=== PATIENT | male | born 1960 | race Caucasian/White ===

== ENCOUNTER 2019-05-13 08:03 | Day surgery (SDC) | payer BC ==
[~2019-05-13 08:03] MED LIST: Lactated Ringers 1,000 ML IV SCH; Sodium Chloride 0.9% 10 ML Syringe FLUSH PRN
[2019-05-13] MEDS ORDERED: Lidocaine 2% 100 MG/5 ML Syringe IVPUSH ONE (08:04)
[2019-05-13] MEDS ORDERED: Propofol 200 MG/20 ML SDV ONE (08:12)
[2019-05-13] MEDS ORDERED: fentaNYL 250 MCG/5 ML SDV ONE (08:12)
[2019-05-13] MEDS ORDERED: ceFAZolin 1 GM Vial ONE ×4 (08:12→09:37)
[2019-05-13] MEDS ORDERED: Bupivacaine 0.5%/EPINEPHrine 1:200,000 30 ML SDV ONE ×2 (08:32→10:33)
[2019-05-13] MEDS ORDERED: Bacitracin/Neomycin/Polymyxin B Oint 0.9 GM U/D Packet ONE (08:33)
[2019-05-13] MEDS ORDERED: ceFAZolin 1 GM Vial IV ONE (09:03)
[2019-05-13] MEDS ORDERED: Propofol 200 MG/20 ML SDV IV ONE (09:03)
[2019-05-13] MEDS ORDERED: Ondansetron 4 MG/2 ML SDV IV ONE (09:03)
[2019-05-13] MEDS ORDERED: fentaNYL 250 MCG/5 ML SDV IV ONE (09:03)
--- NOTE | 2019-05-13 09:12 | PCM.PN ---
- General Info Date of Service: 05/13/19 - Review of Systems Systems Review Comment:: 59-year-old male here for repair of bilateral inguinal hernias. Patient is medically stable to proceed today. His recent history and physical is reviewed and no significant changes are noted. I have discussed the proposed operative procedure with the patient. Expectations instructions and risks of been reviewed. He agrees to proceed. Sites of the hernias are confirmed with the patient and marked. - Patient Data Vitals - Most Recent: Last Vital Signs Temp 97.7 F 05/13/19 08:00 Pulse 57 L 05/13/19 08:00 Resp 16 05/13/19 08:00 BP 136/80 05/13/19 08:00 Pulse Ox 98 05/13/19 08:00 Weight - Most Recent: 89.675 kg Med Orders - Current: Current Medications Lactated Ringer's (Ringers, Lactated) 1,000 mls @ 30 mls/hr IV ASDIRECTED [facility] Last Admin: 05/13/19 08:48 Dose: 30 mls/hr Sodium Chloride (Saline Flush) 10 ml FLUSH Q8HR PRN PRN Reason: keep vein open Discontinued Medications Bupivacaine HCl/Epinephrine Bitart (Marcaine 0.5%/Epinephrine 1:200,000) Confirm Administered Dose 30 ml .ROUTE .STK-MED ONE Stop: 05/13/19 08:33 Cefazolin Sodium (Ancef) Confirm Administered Dose 1 gm .ROUTE .STK-MED ONE Stop: 05/13/19 08:13 Cefazolin Sodium (Ancef) Confirm Administered Dose 1 gm .ROUTE .STK-MED ONE Stop: 05/13/19 08:33 Fentanyl (Sublimaze) Confirm Administered Dose 250 mcg .ROUTE .STK-MED ONE Stop: 05/13/19 08:13 Neomycin/Polymyxin/Bacitracin (Triple Antibiotic Oint) Confirm Administered Dose 2 each .ROUTE .STK-MED ONE Stop: 05/13/19 08:34 Propofol (Diprivan 20 Ml) Confirm Administered Dose 200 mg .ROUTE .STK-MED ONE Stop: 05/13/19 08:13 Sepsis Event Note - Focused Exam Vital Signs: Vital Signs Temp Pulse Resp BP Pulse Ox 05/13/19 08:00 97.7 F 57 L 16 136/80 98 Date Exam was Performed: 05/13/19 Time Exam was Performed: 09:10 - Problem List Review Problem List Initiated/Reviewed/Updated: Yes - My Orders Last 24 Hours: My Active Orders 05/12/19 11:42 Resuscitation Status Routine 05/13/19 08:00 Antiembolic Devices [RC] PER UNIT ROUTINE Peripheral IV Care [RC] . DIRECTED Verify Patient Consent Obtain [RC] ASDIRECTED Vital Signs [RC] PER UNIT ROUTINE Lactated Ringers [Ringers, Lactated] 1,000 ml IV ASDIRECTED Sodium Chloride 0.9% [Saline Flush] 10 ml FLUSH Q8HR PRN Peripheral IV Insertion Adult [OM.PC] Routine Sequential Compression Device [OM.PC] Routine 05/13/19 Breakfast Nothing Per Oral Diet [DIET] - Assessment Assessment:: Bilateral inguinal hernias - Plan Plan:: Bilateral inguinal hernia repair with mesh
[2019-05-13] MEDS ORDERED: Bacitracin/Neomycin/Polymyxin B Oint 0.9 GM U/D Packet TOP ONE (09:30)
[2019-05-13] MEDS ORDERED: Sodium Chloride 0.9% 20 ML SDV ONE (09:30)
[2019-05-13] MEDS ORDERED: Bupivacaine 0.5%/EPINEPHrine 1:200,000 30 ML SDV INFILT ONE (09:30)
[2019-05-13] MEDS ORDERED: fentaNYL 100 MCG/2 ML SDV IVPUSH ONE ×3 (12:11→12:55)
--- NOTE | 2019-05-13 12:12 | PCM.OPNOTE ---
- General Post-Op/Procedure Note Date of Surgery/Procedure: 05/13/19 Operative Procedure(s): Bilateral inguinal hernia repair with mesh Findings: Bilateral direct inguinal hernias. The right side was large and the left side medium-sized. 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 No indirect hernias were identified. Pre Op Diagnosis: Bilateral inguinal hernias Post-Op Diagnosis: Bilateral direct inguinal hernias Anesthesia Technique: General ET Tube Primary Surgeon: Case Mcqueen Pathology: Bilateral cord lipomas EBL in mLs: 20 Complications: None Condition: Good
--- NOTE | 2019-05-13 13:16 | OR ---
DATE OF SURGERY: 05/13/2019 SURGEON: Case Mcqueen MD REFERRING PHYSICIAN: Dr. Michelle Felipe. PREOPERATIVE DIAGNOSIS: Bilateral inguinal hernias. POSTOPERATIVE DIAGNOSIS: Bilateral direct inguinal hernias and bilateral cord lipomas. OPERATION PERFORMED: Bilateral inguinal hernia repair with mesh. INDICATIONS FOR SURGERY: This 59-year-old male has developed bilateral inguinal hernias, which are increasing in size and increasingly symptomatic. He comes for elective repair. FINDINGS: On the right side, the patient has a large direct inguinal hernia. A large amount of what appears to be bladder, was protruding through a large defect in the floor of the inguinal canal, which encompasses almost the entire floor of the canal. There was also a large cord lipoma associated with this. The cord structures otherwise appeared normal with no indirect component. On the left side, the patient has a smaller direct inguinal hernia protruding through the lateral aspect of the floor of the inguinal canal. There was no indirect component. There was a large associated cord lipoma. DESCRIPTION OF PROCEDURE: The patient was taken to the operating room. He was given general endotracheal anesthesia. The inguinal area was sterilely prepped with Betadine and draped. A linear right groin incision was made and carried down to the external oblique fascia, which was incised opening the external ring. The spermatic cord was isolated and careful dissection off the large direct hernia on this side. The ilioinguinal nerve was identified and carefully preserved. The cord was examined and no indirect component was identified. The direct hernia was reduced and then it was held in a reduced position with a running 0 Vicryl suture. The cord was then skeletonized by removing a large cord lipoma, it from the cord down to the level of the internal ring with the lipoma being clamped and divided near the level of the internal ring with 2-0 Vicryl being used to control the vascular pedicles. The floor of the inguinal canal was then reinforced with a large size keyhole piece of polypropylene mesh. The inferior edge of the mesh was secured down to the Kumar's ligament medial to the femoral vessels and then to the shelving portion of the inguinal ligament anterior to these vessels with interrupted 0 Prolene. The superior edge of the mesh was secured to the internal oblique fascia near its fusion with the external oblique fascia also with interrupted 0 Prolene. The spermatic cord and ilioinguinal nerve were passed through the keyhole defect and the tails of the mesh were secured laterally with 0 Prolene, recreating the internal ring such that it would admit one fingertip alongside the spermatic cord. The tails of the mesh were trimmed and laid into the space lateral to the internal ring, between the internal and external oblique fascia. This created a secure reinforcement of the floor of the inguinal canal. The wound was irrigated with Ancef and saline solution, which had also been used to soak the mesh prior to its placement. The external oblique fascia was closed with a running 2-0 Vicryl recreating the external ring. The wound was infiltrated with Marcaine. The Zia's fascia was approximated with interrupted 4-0 Vicryl. The skin was closed with a running 4-0 Vicryl subcuticular stitch. Attention was then turned to the left groin where a corresponding left groin incision was made. This was carried down to the external oblique fascia, which was incised, opening the external ring. The spermatic cord was isolated and explored. No indirect component was identified. The ilioinguinal nerve was carefully identified and preserved. The direct defect was identified in the floor of the canal. This was easily reduced and held in a reduced position with a running 0 Vicryl. The floor of the inguinal canal was then reinforced with a large size keyhole piece of polypropylene mesh. The inferior edge of the mesh being secured to the Kumar's ligament medial to the femoral vessels and the shelving portion of inguinal ligament anterior to these vessels with interrupted 0 Prolene. There superior edge of the mesh was secured down to the internal oblique fascia near its fusion with the external oblique fascia also with interrupted 0 Prolene. The spermatic cord and ilioinguinal nerve were passed through the keyhole defect and the tails of the mesh was secured laterally to each other with interrupted 0 Prolene, recreating the internal ring such that would admit one fingertip alongside the spermatic cord. The tails of the mesh were then trimmed and laid into the space lateral to the internal ring between the internal and external oblique fascias. This created a secure and solid reinforcement of the floor of the inguinal canal on the left side. It should also be noted that a large cord lipoma was removed from the left spermatic cord and its base was divided above clamps with ties of 0 Vicryl being used for hemostasis. After the mesh had been secured, the wound was irrigated with Ancef and saline solution and the external oblique fascia was reapproximated with a running 2-0 Vicryl recreating the external ring. The wound was infiltrated with Marcaine. The Zia's fascia was approximated with interrupted 4-0 Vicryl and the skin was closed with a running 4-0 Vicryl subcuticular stitch. Steri-Strips and benzoin were applied to both incisions followed by antibiotic ointment and sterile dressings. The patient was awakened, extubated, and taken from the operating room in satisfactory condition. ESTIMATED BLOOD LOSS: 20 mL. COMPLICATIONS: None. PROGNOSIS: Good. /[id number]/MODL
[2019-05-13] MEDS ORDERED: Ondansetron 4 MG/2 ML SDV IVPUSH ONE (13:40)
[2019-05-13] MEDS ORDERED: Acetaminophen/HYDROcodone 325-5 MG Tab PO ONE (15:39)
== END 2019-05-13 16:05 | disposition home or self-care (01) ==
LOC: KA.SDS 08:03
PROVIDERS: ATTEND Surgery
DX: K40.20 Bilateral inguinal hernia, without obstruction or gangrene, not specified as recurrent (principal); D17.6 Benign lipomatous neoplasm of spermatic cord
CPT/HCPCS: A9270-GY; C1781; J0690; J2001; J2405; J2704; J3010; J3490; J7120

== ENCOUNTER 2023-02-15 22:58 | Emergency (ER) | payer BC ==
[2023-02-15] MEDS ORDERED: Sodium Chloride 0.9% 10 ML Syringe FLUSH PRN (23:05)
[2023-02-15] MEDS ORDERED: Sodium Chloride 0.9% 1,000 ML IV ONE (23:26)
[2023-02-15 23:27] LABS: BASOPHILS ABSOLUTE AUTO 0.06 10^3/uL (0.00-0.10); BASOPHILS PERCENT AUTO 0.7 % (0.0-1.0); EOSINOPHILS PERCENT AUTO 2.3 % (1.0-3.0); HEMATOCRIT 48.2 % (40.0-52.0); HEMOGLOBIN 16.4 g/dL (13.0-17.0); IMMATURE GRAN ABSOLUTE AUTO 0.01 10^3/uL (0.00-0.50); IMMATURE GRAN PERCENT AUTO 0.1 % (0.0-5.0); LYMPHOCYTES ABSOLUTE AUTO 2.02 10^3/uL (1.00-4.00); LYMPHOCYTES PERCENT AUTO 23.5 % (20.0-40.0); MEAN CORPUSCULAR HEMOGLOBIN 31.1 pg (27.0-31.0); MEAN CORPUSCULAR VOLUME 91.3 fL (82.0-92.0); MEAN PLATELET VOLUME 9.2 fL (7.4-10.4); MONOCYTES ABSOLUTE AUTO 0.66 10^3/uL (0.10-0.80); MONOCYTES PERCENT AUTO 7.7 % (2.0-8.0); NEUTROPHILS ABSOLUTE AUTO 5.65 10^3/uL (2.50-7.00); NEUTROPHILS PERCENT AUTO 65.7 % (50.0-70.0); PLATELET COUNT,PLT 190 10^3/uL (150-400); RED BLOOD CELL COUNT 5.28 10^6/uL (4.50-6.00); RED CELL DISTRIBUTION WIDTH 12.5 % (11.5-14.5)
[2023-02-15] MEDS ORDERED: Sodium Chloride 0.9% 1,000 ML ONE (23:27)
[2023-02-15 23:45] LABS: ALBUMIN 3.56 g/dL (3.40-5.00); ANION GAP 12.6 mmol/L (5-15); BILIRUBIN TOTAL 0.6 mg/dL (0.2-1.0); CALCIUM 7.9 mg/dL (8.7-10.3); CARBON DIOXIDE,CO2 25.9 mmol/L (21.0-32.0); EST CRCL DRUG DOSING (CG) 79.63 mL/min; POTASSIUM,K 3.5 mmol/L (3.5-5.1); PROTEIN TOTAL,TP 7.4 g/dL (6.4-8.2)
== END 2023-02-16 00:20 | disposition home or self-care (01) ==
LOC: KA.ED 22:58
DX: R19.7 Diarrhea, unspecified (principal)
CPT/HCPCS: 80053; 85025; 96360; 99284; J7030; 36415; J3490